=== PATIENT | male | born 1960 | race Asian ===

== ENCOUNTER 2021-10-01 23:32 | Emergency (ER) | payer BC ==
[~2021-10-01] VITALS: Ht 175.3 cm; Wt 72.6 kg
[2021-10-01 23:40] VITALS: BP_SYST 147
--- NOTE | 2021-10-02 00:15 | NUR ---
Patient to ER bed 5 to gown for evaluation. Side rails up. Report given to self.
--- NOTE | 2021-10-02 00:20 | NUR ---
ER Dr. Larson at bedside examining patient. # 16 FR Berry catheter with use of sterile technique. Immediate return of 1000 cc clear yellow urine noted. Bedside drainage bag placed below level of bladder. Urine sample collected and sent to lab. Pt tolerated procedure.
[2021-10-02 02:03] LABS: BILIRUBIN,URINE NEGATIVE (NEGATIVE); BLOOD, URINE 3+ (NEGATIVE); CLARITY/URINE CLEAR (CLEAR); COLOR,URINE YELLOW (YELLOW); GLUCOSE,URINE TRACE (NEGATIVE); KETONES,URINE NEGATIVE (NEGATIVE); LEUKOCYTE ESTERASE ,URINE NEGATIVE (NEGATIVE); NITRITE, URINE NEGATIVE (NEGATIVE); PROTEIN URINE NEGATIVE (NEGATIVE); UROBILINOGEN,URINE 0.2 (0.2-1.0)
[2021-10-02 02:25] VITALS: BP_SYST 119
--- NOTE | 2021-10-02 02:25 | NUR ---
Patient resting quietly. No acute distress noted. Vital signs within normal range.
--- NOTE | 2021-10-02 02:48 | NUR ---
Patient given written and verbal discharge instructions and verbalizes understanding. ER MD discussed with patient the results and treatment provided. Patient in stable condition. ID arm band removed. Patient educated on pain management and to follow up with PMD. Pain Scale. Opportunity for questions provided and answered. Medication side effect fact sheet provided. Patient shown how to change large urine drainage bag to leg bag. patient demonstrated how to change urine drainage bag to leg bag.
[2021-10-02 02:49] LABS: BACTERIA,URINE RARE /HPF (None Seen); RBC,URINE 0-3 /HPF (0-3); WBC,URINE 0-3 /HPF (0-3)
== END 2021-10-02 02:48 | disposition home or self-care (01) ==
LOC: SED 23:32
DX: R33.9 Retention of urine, unspecified (principal); R10.9 Unspecified abdominal pain
CPT/HCPCS: 81000; 99283

== ENCOUNTER 2023-12-09 22:13 | Emergency (ER) | payer OTHER, MEDICARE ==
[~2023-12-09] VITALS: Ht 177.8 cm; Wt 73.9 kg
[2023-12-09 22:52] VITALS: BP_SYST 159; PULSE 116; RESP 17; TEMP 97; O2SAT 97
[2023-12-09] MEDS ORDERED: CIPR500T5 PO (23:41)
[2023-12-09 23:45] LABS: BASOPHILS % (AUTO) 0.4 % (0.0-2.0); EOSINOPHILS % (AUTO) 0.4 % (0.0-4.0); HEMOGLOBIN 16.6 g/dL (14.0-18.0); LYMPHOCYTES # (AUTO) 1.3 K/uL (1.0-5.5); LYMPHOCYTES % (AUTO) 11.6 % (20.5-51.5); MEAN CORPUSCULAR HEMOGLOBIN 29 pg (27-31); MEAN CORPUSCULAR HGB CONC 35 % (32-36); MEAN CORPUSCULAR VOLUME 84 fL (79.0-98.0); MONOCYTES # (AUTO) 0.7 K/uL (0.0-1.0); MONOCYTES % (AUTO) 6.9 % (1.7-9.3); NEUTROPHILS # (AUTO) 8.8 K/uL (1.8-7.7); NEUTROPHILS % (AUTO) 80.7 % (40.0-70.0); PLATELET COUNT (AUTO) 353 K/uL (130-430); RED BLOOD CELL COUNT(AUTO) 5.74 MIL/uL (4.2-6.2); RED CELL DISTRIBUTION WIDTH 14.4 % (9.0-15.0); WHITE BLOOD COUNT (AUTO) 10.9 K/uL (4.8-10.8)
[2023-12-09 23:54] LABS: BILIRUBIN,URINE NEGATIVE (NEGATIVE); BLOOD, URINE 1+ (NEGATIVE); CLARITY/URINE CLEAR (CLEAR); COLOR,URINE YELLOW (YELLOW); GLUCOSE,URINE NEGATIVE (NEGATIVE); KETONES,URINE NEGATIVE (NEGATIVE); LEUKOCYTE ESTERASE ,URINE NEGATIVE (NEGATIVE); NITRITE, URINE NEGATIVE (NEGATIVE); PROTEIN URINE NEGATIVE (NEGATIVE); UROBILINOGEN,URINE 0.2 (0.2-1.0)
[2023-12-09 23:58] LABS: CALCIUM 9.3 mg/dL (8.4-11.0); CREATININE 1.13 mg/dL (0.55-1.30); POTASSIUM 4.1 mmol/L (3.5-5.1)
[2023-12-10 00:22] LABS: BACTERIA,URINE None Seen /HPF (None Seen)
== END 2023-12-09 23:55 | disposition home or self-care (01) ==
LOC: SED 22:13
DX: R33.9 Retention of urine, unspecified (principal); Z79.899 Other long term (current) drug therapy
CPT/HCPCS: 36415; 80048; 81000; 81001; 81015; 85025; 99284

== ENCOUNTER 2024-01-04 18:35 | Emergency (ER) | payer OTHER, MEDICARE ==
[~2024-01-04] VITALS: Ht 177.8 cm; Wt 74.8 kg
[~2024-01-04 18:35] MED LIST: CIPR500T5 PO
[2024-01-04 18:46] VITALS: BP_SYST 119; PULSE 103; RESP 18; TEMP 98.1; O2SAT 96
[2024-01-04 20:58] VITALS: BP_SYST 121; PULSE 89; RESP 18; TEMP 98.2; O2SAT 97
== END 2024-01-04 20:45 | disposition home or self-care (01) ==
LOC: SED 18:35
DX: R31.9 Hematuria, unspecified (principal); Z79.899 Other long term (current) drug therapy; Z90.79 Acquired absence of other genital organ(s)
CPT/HCPCS: 99281